=== PATIENT | female | born 1980 | race Caucasian/White ===

== ENCOUNTER 2018-03-03 04:04 | Emergency (ER) | payer BC, OTHER ==
[~2018-03-03] VITALS: Ht 162.6 cm; Wt 63.5 kg
[2018-03-03 04:20] VITALS: BP 144/88
[2018-03-03] MEDS ORDERED: oxyCODONE/APAP (5/325 MG) 1 UDTAB TABLET ONE (04:56)
[2018-03-03] MEDS ORDERED: PHENAZOPYRIDINE HCL 200 MG TABLET ONE (04:56)
[2018-03-03] MEDS ORDERED: ONDANSETRON 4 MG TAB.RAPDIS ONE (04:56)
[2018-03-03] MEDS ORDERED: oxyCODONE/APAP (5/325 MG) 1 UDTAB TABLET PO ONE (05:00)
[2018-03-03] MEDS ORDERED: PHENAZOPYRIDINE HCL 200 MG TABLET PO ONE (05:00)
[2018-03-03] MEDS ORDERED: ONDANSETRON 4 MG TAB.RAPDIS SL ONE (05:00)
[2018-03-03 05:25] LABS: APPEARANCE,URINE SL CLOUDY (CLEAR); BILIRUBIN,URINE NEGATIVE (NEGATIVE); BLOOD, URINE 1+ Ery/uL (NEGATIVE); COLOR,URINE YELLOW (YELLOW); KETONES,URINE NEGATIVE (NEGATIVE); LEUKOCYTE ESTERASE ,URINE 1+ (NEGATIVE); NITRITE, URINE NEGATIVE (NEGATIVE); PROTEIN,URINE TRACE mg/dl (NEGATIVE); UGLUCOSE NEGATIVE (NEGATIVE); UROBILINOGEN,URINE 0.2 EU/dL (0.2)
[2018-03-03 05:26] LABS: SQUAMOUS EPITHELIAL CELL,UR Moderate /HPF (None Seen)
[2018-03-03 05:27] LABS: BACTERIA,URINE Few /HPF (None Seen); WBC,URINE 21-50 /HPF (0-3)
[2018-03-03] MEDS ORDERED: CEFTRIAXONE 1 G VIAL ONE (05:50)
[2018-03-03] MEDS ORDERED: LIDOCAINE /MPF 1% VIAL 5 ML VIAL ONE (05:50)
[2018-03-03] MEDS ORDERED: NITROFURANTOIN/NITROFURAN MAC 100 MG CAPSULE ONE (05:51)
[2018-03-03] MEDS ORDERED: CEFTRIAXONE 1 G VIAL IM ONE (06:00)
[2018-03-03] MEDS ORDERED: NITROFURANTOIN/NITROFURAN MAC 100 MG CAPSULE PO ONE (06:00)
== END 2018-03-03 06:11 | disposition home or self-care (01) ==
LOC: ER 04:07
DX: N12 Tubulo-interstitial nephritis, not specified as acute or chronic (principal); N83.209 Unspecified ovarian cyst, unspecified side; Z90.89 Acquired absence of other organs; Z87.440 Personal history of urinary (tract) infections
CPT/HCPCS: 81001; 87086; 96372; 99284; A4606; J0696; J3490; Q0162; Z7610; 81000-TC